=== PATIENT | male | born 1965 | race Caucasian/White ===

== ENCOUNTER 2017-03-05 07:05 | Emergency (ER) | payer BC ==
[2017-03-05 07:23] VITALS: BP 151/87; PULSE 86; TEMP 99.4; BMI 28.7
[2017-03-05] MEDS ORDERED: IBUPROFEN 400 MG TABLET (FP) PO ONE ×2 (08:18→08:42)
--- NOTE | 2017-03-05 08:25 | PDOC ---
*Physical Exam - Vital Signs Last Vital Signs Temp Pulse Resp BP Pulse Ox 99.4 F 86 18 151/87 99 03/05/17 07:20 03/05/17 07:20 03/05/17 07:20 03/05/17 07:20 03/05/17 07:20 *DC/Admit/Observation/Transfer - Referrals Referrals: Danny Saldivar MD [Primary Care Provider] - - Patient Instructions - Post Discharge Activity
--- NOTE | 2017-03-05 08:36 | PDOC ---
History of Present Illness - General Chief Complaint: Cold Symptoms Stated Complaint: FLU LIKE SYMPTOMS,FEVER Time Seen by Provider: 03/05/17 08:17 Past History - Past Medical History Allergies/Adverse Reactions: Allergies Allergy/AdvReac Type Severity Reaction Status Date / Time No Known Drug Allergies Allergy Verified 03/05/17 07:20 Home Medications: Ambulatory Orders No Home Medications 0 dose .ROUTE UTDICT 12/29/12 Ibuprofen 800 mg PO TID #30 tablet 03/05/17 Oseltamivir Phosphate [Tamiflu] 75 mg PO BID #10 capsule 03/05/17 COPD: No - Suicide/Smoking/Psychosocial Hx Smoking History: Never smoked Have you smoked in the past 12 months: No Hx Alcohol Use: No Drug/Substance Use Hx: No Substance Use Type: None *Physical Exam - Vital Signs Last Vital Signs Temp Pulse Resp BP Pulse Ox 99.4 F 86 18 151/87 99 03/05/17 07:20 03/05/17 07:20 03/05/17 07:20 03/05/17 07:20 03/05/17 07:20 *DC/Admit/Observation/Transfer Diagnosis at time of Disposition: Influenza A - Discharge Dispostion Disposition: HOME Condition at time of disposition: Stable Admit: No - Prescriptions Prescriptions: Ibuprofen 800 mg PO TID #30 tablet Oseltamivir Phosphate [Tamiflu] 75 mg PO BID #10 capsule - Referrals Referrals: Danny Saldivar MD [Primary Care Provider] - - Patient Instructions Printed Discharge Instructions: DI for Influenza -- Adult Additional Instructions: You have the flu. Please take 800 mg of Motrin every 8 hours to help with your fever. Drink plenty of fluids. You may treat the symptoms including a cough. You may take [id number] cough medicine, use cough drops, drink tea. Get plenty of rest. Follow-up with your doctor in 1 week. Return to the emergency department if you have difficulty breathing, shortness of breath or any changes in your symptoms. - Post Discharge Activity Forms/Work/School Notes: Back to Work
== END 2017-03-05 09:46 | disposition home or self-care (01) ==
LOC: SUPCPDRO 07:05 → JER 07:05
DX: J09.X2 Influenza due to identified novel influenza A virus with other respiratory manifestations (principal)
CPT/HCPCS: 87070; 87430; 87804; 99282-25